=== PATIENT | female | born 1995 | race Caucasian/White ===

== ENCOUNTER 2020-11-21 08:54 | Outpatient (RCR) | payer OTHER, SELFPAY ==
[2020-11-21] MEDS: Please add drug allergy info to patient profile. 1 EACH XX (18:13)
[2020-11-21] MEDS: RHO(D) IMMUNE GLOBULIN 300 MCG/2 ML SYRINGE IM (18:14)
== END 2021-02-19 23:59 | disposition home or self-care (01) ==
LOC: ANHLAB 08:54
PROVIDERS: Visit Provider Student in an Organized Health Care Education/Training Program
DX: Z29.13 Encounter for prophylactic Rho(D) immune globulin (principal); O36.0190 Maternal care for anti-D [Rh] antibodies, unspecified trimester, not applicable or unspecified; Z3A.00 Weeks of gestation of pregnancy not specified
CPT/HCPCS: 36415; 85461; 90384; 96372; J2790

== ENCOUNTER 2021-02-12 13:50 | Outpatient (CLI) | payer OTHER, SELFPAY ==
[2021-02-12 14:47] LABS: Hematocrit 38.5 % (37.0-47.0); Hemoglobin 13.1 g/dL (12.0-15.0); Mean Corpuscular Hemoglobin 30.8 pg (26-34); Mean Corpuscular Volume 90.6 fl (80-100); Mean Platelet Volume 10.9 fl (7.4-10.4); Platelet Count Result 262 k/mm3 (150-375); Red Blood Count 4.25 M/mm3 (4.2-5.4); Red Cell Distribution Width 12.2 % (11.5-14.5); White Blood Count 12.5 K/mm3 (4.5-10.0)
[2021-02-13 06:25] LABS: Rapid Plasma Reagin Non-Reactive (NonReactive)
== END 2021-02-12 13:51 | disposition home or self-care (01) ==
LOC: ANHLAB 13:53
PROVIDERS: Visit Provider Obstetrics & Gynecology
DX: Z01.818 Encounter for other preprocedural examination (principal)
CPT/HCPCS: 36415; 85027; 86592; 86850; 86900; 86901

== ENCOUNTER 2021-02-13 09:53 | Inpatient (IN) | payer OTHER, SELFPAY ==
--- NOTE | 2021-02-02 15:01 | PC.NURSE ---
PATIENT STATES BABY JUST FLIP TO BREECH POSITION THIS WEEK--PATIENT STATES SEES DR VENCES THURSDAY -WILL DISCUSS IF WILL DO EXTERNAL VERSION OR C/S GAVE PATIENT REQUISITION FOR PRE-OP LAB DRAWN. INSTRUCTED PATIENT IF C/S BE IN OB 2 HOURS BEFORE SURGERY AND NOTHING BY MOUTH THE NIGHT BEFORE SURGERY AT MIDNIGHT PATIENT VERBALIZED HER UNDERSTANDING
[2021-02-13] VITALS (50 sets, daily range): BP systolic 91–135; BP diastolic 48–89; PULSE 67–119; RESP 16–20; TEMP 35.8–36.9; O2SAT 94–100; BMI 33.1
--- NOTE | 2021-02-13 09:53 | LDADM ---
This patient, Sheryl Marcum, was admitted to Labor/Delivery/Recovery 119 on 02/13/21 at 09:53. Plans for labor, pain management and were discussed with patient. Patient/family oriented to hospital policies and general routines including ID bracelet, bed and alarms, visiting hours, pain management, procedures, bathroom and other care routines, personal items, smoking policy, room service/diet and guest tray routines, infant security routines, and visiting hours. Patient/Family are encouraged to report perceived risks to care and to ask questions if they do not understand what they are told or what they should do. See OBIX for further documentation.
[2021-02-13] MEDS: LACTATED RINGERS 1,000 ML 125 ML IV CONT (10:29)
--- NOTE | 2021-02-13 10:42 | WPDANESEPP ---
Anes - Eval Pre Procedure Procedure: C Section Operation Date: 02/13/21 12:00 Proposed Procedures p Section - Larry Hammer MD Date/Time: 02/13/21 10:42 Surgeon: Jaquelin Preop Diagnosis: Breech presentation Pre Op Diagnosis: c/s Patient Data Age: 25 Gender: F Height: 1.55 m Weight: 79.5 kg Last Vital Signs Pulse 112 H 02/13/21 10:08 BP 126/78 02/13/21 10:08 Allergies Allergy/AdvReac Type Severity Reaction Status Date / Time No Known Allergies Allergy Verified 02/13/21 10:41 Home Medications Medication Instructions Recorded Confirmed Type No Home Medications 02/13/21 02/13/21 History Patient hx anesthesia problems: none Family hx anesthesia problems: none Results Review: All pre-operative results and documents have been reviewed as part of the pre-operative evaluation. [facility] Past Medical History Medical History Breech presentation Overweight (BMI 25.0-29.9) and not yet delivered Family History Family History Father Hypertension Grandparent Hypertension Social History Social History Smoking status: Never smoker Substance use: never Spiritual care concerns: No Exam Day of Procedure 02/13/21 10:42 Patient weight: overweight Heart: regular rate and rhythm Lungs: clear to auscultation Airway: Mallampati scale class III Neurological: alert and oriented
--- NOTE | 2021-02-13 12:00 | PM.IMHP ---
H&P: HPI History of Present Illness Date/Time: 02/13/21 12:00 25 y/o G1 at 39 3/7 weeks with breech presentation, here for elective primary . GBS pos. Chief Complaint: Here for c section Review of Systems Review of Systems: All systems reviewed & are unremarkable except as noted in HPI and below PMFSH Past Medical History Medical History (Updated 02/13/21 @ 12:04 by Larry Hammer MD) Breech presentation Overweight (BMI 25.0-29.9) and not yet delivered Family History Family History Father Hypertension Grandparent Hypertension Social History Social History Smoking status: Never smoker Substance use: never Spiritual care concerns: No Meds Home Medications and Allergies Home Medications Medication Instructions Recorded Confirmed Type No Home Medications 02/13/21 02/13/21 History Allergies Allergy/AdvReac Type Severity Reaction Status Date / Time No Known Allergies Allergy Verified 02/13/21 10:41 Vital Signs Vital Signs - 24 hr 02/13/21 10:08 Temperature 36.8 C Pulse Rate 112 H Respiratory Rate 20 Blood Pressure 126/78 Exam Const: Orientation/consciousness: patient oriented x3 Other: Well-developed, well-nourished female in no acute distress. Neck: Thyroid: thyroid normal Lymphatic: no lymphadenopathy noted (in neck, axilla or inguinal nodes) Resp: Effort & Inspection: normal respiratory effort Auscultation: clear to auscultation bilaterally Cardio: Rate: regular rate Rhythm: regular rhythm Heart sounds: S1 normal heart sound present and S2 normal heart sound present GI: Other: ABD: Soft, nontender, nondistended, gravid. Breech on Ankit's. No guarding or rebound tenderness. No hepatosplenomegaly. Bedside ultrasound by me confirms breech presentation. : General: Yes no CVA tenderness Other: Cervix closed. Back/Spine/Pelvis: Back: no CVA tenderness Skin: General skin exam: normal color and no rashes or lesions noted Neuro: General: patient oriented x3 Extrem: Other: Extremities: nontender with no edema Psych: Mental Status: mental status grossly normal Affect: normal affect Assessment and Plan Assessment and plan (1) Term : Code(s): Z34.90 - Encounter for supervision of normal , unspecified, unspecified trimester Status: Acute Assessment and Plan: A: IUP at 39 3/7 with persistent breech presentation. GBS pos. P: She declines ECV. Recommended primary LTCS. She understands risks of surgery to include risks of anesthesia, risks of pain, infection, bleeding, blood products, thromboembolic phenomena and damage to adjacent structures such as bowel, bladder, ureters, blood vessels and nerves. She understands all these risks and elects to proceed with surgery. Ancef preoperatively. (2) GBS (group B Streptococcus carrier), +RV culture, currently : Code(s): O99.820 - Streptococcus B carrier state complicating Status: Acute (3) Breech presentation: Code(s): O32.1XX0 - Maternal care for breech presentation, not applicable or unspecified Status: Inactive
--- NOTE | 2021-02-13 12:01 | WPDANESEFPP ---
Anes - Eval Final PreProcedure Day of Procedure 02/13/21 12:01 Patient weight: obese Heart: regular rate and rhythm Lungs: clear to auscultation and normal air movement Airway: Mallampati scale class II Neurological: alert and oriented Last oral intake: >/= 8 hours ASA classification: II Emergent: no Anesthetic plan: proceed Anesthesia type and monitoring: regional spinal Results Review: All pre-operative results and documents have been reviewed as part of the pre-operative evaluation. Informed Consent: The patient's anesthetic plan and its attendant risks and benefits were discussed with the patient/family/POA. Questions were solicited and answers provided to the satisfaction of the patient/family/POA.
[2021-02-13] MEDS: ceFAZolin 2 GM/D5W 50 ML 2 GM/50 ML BAG IVPB (12:07)
--- NOTE | 2021-02-13 13:19 | PM.OBPRVD ---
OB - Delivery Note Procedure Delivery date: 02/13/21 Procedure: Procedures Operation Date: 02/13/21 12:00 <No data on this case meets the specified criteria> Primary low transverse delivery Delivery monitor: external FHT and external uterine Route of delivery: Specimen: Yes (cord blood) Quantitative Blood Loss (ml): 515 Anesthesia type: Spinal Disposition: PACU Complications: None Narrative: The patient was taken to the operating room where she was prepared and draped in the usual sterile fashion in dorsal supine position with a leftward tilt. She received cefazolin preoperatively. Spinal anesthesia was found to be adequate. A Pfannenstiel skin incision was made and carried through to the underlying layer of the fascia. The fascia was incised in the midline and the incision was extended laterally. The fascia was dissected free of the underlying rectus muscles. The rectus muscles were in the midline. The peritoneum was identified, tented up and entered sharply. The peritoneal incision was extended superiorly and inferiorly with good visualization of the bladder. The bladder blade was placed. The vesicouterine peritoneum was identified, tented up and entered sharply. The incision was extended laterally and the bladder flap was developed. The bladder blade was replaced. The uterus was then incised sharply in a transverse fashion along the lower uterine segment. The incision was extended laterally. The 's breech was delivered to the level of the scapulae. The arms were swept across the chest and delivered. The head was gently flexed and easily delivered. The nose and mouth were bulb suctioned. After a delay, the cord was clamped and cut. The was handed off the field. Cord blood was collected. The placenta was removed manually and was passed off the field. The uterus was exteriorized and cleared of all clots and debris. The uterine incision was reapproximated using 0 Monocryl in a running, locked fashion. Excellent hemostasis resulted as did excellent reapproximation of the normal anatomy. The uterus was returned the abdomen. The pelvis was irrigated copiously with warmed normal saline. Rigorous hemostasis was assured. The fascial layer was reapproximated using 0 Vicryl in a running fashion. The skin was closed with a running, subcuticular stitch of 4 0 Vicryl. Dermaflex was applied externally. Sponge, lap, needle and instrument counts were correct. The patient was taken to the recovery room in stable condition. The went to the nursery in stable condition. I was present and scrubbed the entire procedure. [place] Baby Date of : 02/13/21 Time of : 12:41 Weeks of gestation at delivery: 39 Infant gender: Female Weight (pounds): 7 Weight (ounces): 10 presentation: breech Placenta delivery description: Manual Removal and Normal Configuration cord vessel description: 3 Vessels and Delayed Cord Clamping score one minute: 7 score five minutes: 8
--- NOTE | 2021-02-13 13:24 | PM.OBDSVD ---
DS: Admitting Diagnosis Discharge Date 02/15/21 Admitting Diagnosis IUP at 39 3/7 weeks Mario breech presentation GBS colonization DS: Discharge Diagnosis Discharge Diagnosis (1) GBS (group B Streptococcus carrier), +RV culture, currently : Code(s): O99.820 - Streptococcus B carrier state complicating Status: Acute (2) Term : Code(s): Z34.90 - Encounter for supervision of normal , unspecified, unspecified trimester Status: Acute (3) Breech presentation: Code(s): O32.1XX0 - Maternal care for breech presentation, not applicable or unspecified Status: Acute OB - DS: Summary OB Procedures : Ultrasound OB Procedures Intrapartum: OB Procedures: : RHo (D) lg Peripartum Data Procedures: Procedures Operation Date: 02/13/21 12:00 <No data on this case meets the specified criteria> Primary LTCS Discharge Plan Discharge Attending physician on discharge: Larry Hammer Consulting providers: Abdi Brannon Discharging Clinician: Larry Hammer Patient Disposition: Home, Self-Care Activity: may shower, may drive after 2 weeks and pelvic rest Diet: regular Wound Care Instructions: incision open to air Discharge Instructions: Education: Mom and Baby Guide Given to: Mother Follow-Up: Call your delivering provider's office for an appointment to be seen in: 4 Weeks Mom and baby should come to the [facility] for the follow-up appointment. Appointment Date/Time: Tuesday, February 16, 2021 at 11:00 am What to expect at your follow-up visit: Physical Assessment Call [phone] if you are unable to keep your appointment time. BREAST CARE: * Wear a snug supportive bra. * For engorgement discomfort: Bottle Feeding: * May apply ice packs ABDOMINAL INCISION: (if applicable) * Allow incision to air dry * Do NOT use lotions or powders on your incision * When showering, allow soap and water to run over the incision, but do not wash incision EPISIOTOMY/PERINEAL CARE: * Until bleeding stops, use your yaritza bottle after urinating * Change your pad frequently throughout the day * You may take sitz baths several times a day (fill your bathtub with warm water and soak for 20 minutes.) Do NOT bathe in the water * No tub baths until seen by your physician - You may shower ACTIVITY: * Rest as much as possible. * Do not exercise or lift anything heavier than your baby (such as laundry or other children.) * Avoid stairs or driving as much as possible. * Do not put anything into the vagina. No douching, tampons, or sexual activity until seen by physician. NOTIFY PHYSICIAN IF YOU HAVE ANY QUESTIONS OR IF ANY OF THE FOLLOWING SYMPTOMS OCCUR: * If your episiotomy or incision becomes red, swollen, or more painful than what you have experienced in the hospital. * If your vaginal bleeding becomes foul smelling. * If your vaginal bleeding becomes more heavy than a period or if your bleeding changes from pink to bright red. However, you may pass an occasional walnut-sized clot once or twice for the first week . * If you experience a sharp, shooting pain in you calves. * If you discover a hard, reddened area on your breast or if you experience flu-like symptoms. DIET: * Eat regular, well-balanced meals. * Drink plenty of fluids daily. If , drink to thirst. Per Dr. Pat, Call or return if temperature above 100.4? F, increased abdominal pain, increased vaginal bleeding or any new problems. Patient Instructions: Antibiotic Form Follow-up/Referrals: Larry Hammer MD [Physician] - 4 Weeks Discharge Medications: New ibuprofen 600 mg tablet 600 mg PO Q6H PRN (Reason: cramps) Qty: 30 RF: 0 hydrocodone-acetaminophen 5-325 mg tablet 1 - 2 tablet PO Q6H PRN (Reason: pain) Qty: 30 RF: 0 No Action N
[2021-02-13] MEDS: OXYTOCIN 30 UNITS/NS 500 ML 30 UNITS/500 ML BAG 125 UNITS IV CONT (14:05)
--- NOTE | 2021-02-13 15:10 | SUR.PHASEI ---
Report called to Giovana Baer RN. Pt going to room 278 for pp care once recovery completed.
[2021-02-13] MEDS: KETOROLAC 30 MG/ML VIAL (*BKC) IV PUSH (16:16)
--- NOTE | 2021-02-13 18:19 | PC.NURSE ---
Patient transferred to post room #278 via stretcher. Support person present. Oriented to unit, room, information board, rooming in, admission packet and security measures. Patient verbalizes understanding.
[2021-02-13] MEDS: DEXTROSE 5%/0.45% SOD CHL 1,000 ML 125 ML IV CONT (18:34)
[2021-02-14 00:10] VITALS: BP 118/79; PULSE 106; RESP 18; TEMP 36.8; O2SAT 100
[2021-02-14] MEDS: IBUPROFEN 600 MG TABLET PO ×3 (00:22→17:03)
[2021-02-14 05:00] VITALS: BP 120/81; PULSE 95; RESP 18; TEMP 36.3; O2SAT 99
[2021-02-14 05:15] LABS: Basophils Percent Auto 0.2 % (0.2-1.2); Eosinophils Percent Auto 0.2 % (0-4.4); Hematocrit 33.2 % (37.0-47.0); Hemoglobin 11.6 g/dL (12.0-15.0); Immature Granulocyte Absolute 0.08 K/mm3 (0.00-0.031); Immature Granulocyte Percent A 0.5 % (0-0.5); Lymphocytes Absolute Auto 2.74 K/mm3 (0.9-3.2); Lymphocytes Percent Auto 15.4 % (18.3-44.2); Mean Corpuscular HGB Conc 34.9 g/dl (32-36); Mean Corpuscular Hemoglobin 30.9 pg (26-34); Mean Corpuscular Volume 88.5 fl (80-100); Mean Platelet Volume 10.9 fl (7.4-10.4); Monocytes Absolute Auto 1.4 K/mm3 (0.1-0.6); Monocytes Percent Auto 7.9 % (2.6-8.5); Neutrophils Absolute Auto 13.5 K/mm3 (1.3-6.7); Neutrophils Percent Auto 75.8 % (45.5-73.1); Platelet Count Result 227 k/mm3 (150-375); Red Blood Count 3.75 M/mm3 (4.2-5.4); Red Cell Distribution Width 11.9 % (11.5-14.5); White Blood Count 17.8 K/mm3 (4.5-10.0)
[2021-02-14 07:35] VITALS: BP 126/82; PULSE 90; RESP 16; TEMP 37.5; O2SAT 99
[2021-02-14] MEDS: MULTIVIT/MIN/PREN/FOL AC/IRON TABLET 1 TAB PO (08:18)
[2021-02-14] MEDS: DOCUSATE SODIUM 100 MG CAPSULE PO ×2 (08:19→17:03)
[2021-02-14] MEDS: HYDROcodone/acetaminophen (*CRX) 5-325 MG TABLET 1 TAB PO ×3 (08:19→17:03)
--- NOTE | 2021-02-14 09:04 | P.PNOB_ITS ---
OB - PN: Subj Subjective Date/time seen: 02/14/21 09:04 Narrative: Pain OK. Tolerating diet. OB - PN: Obj Data Labs CBC & Chem 7: 02/14/21 04:50 Labs: Laboratory Results - last 24 hr 02/14/21 02/14/21 04:50 04:50 WBC 17.8 H RBC 3.75 L Hgb 11.6 L Hct 33.2 L MCV 88.5 MCH 30.9 MCHC 34.9 RDW 11.9 Plt Count 227 MPV 10.9 H Immature Gran % (Auto) 0.5 Neut % (Auto) 75.8 H Lymph % (Auto) 15.4 L [place] % (Auto) 7.9 Eos % (Auto) 0.2 Baso % (Auto) 0.2 Lymph # (Auto) 2.74 [place] # (Auto) 1.4 H Eos # (Auto) 0.0 Baso # (Auto) 0.0 Abs Immat Gran (auto) 0.08 H Absolute Neuts (auto) 13.5 H Absolute Nucleated RBC 0.0 Nucleated RBC % 0.0 Blood Type O Negative Screen Negative Baby's Blood Type O pos Baby's REGINALD Negative Doses of RhIg Required 1 OB - PN A/P Plan Comments: A: POD#1, doing well. P: Routine care. Exam Narrative: AVSS I/O OK ABD soft, nontender, fundus firm. Incision c/d/i. EXT nontender
[2021-02-14] MEDS: RHO(D) IMMUNE GLOBULIN 300 MCG/2 ML SYRINGE IM (10:37)
[2021-02-14 12:02] VITALS: BP 121/77; PULSE 86; RESP 18; TEMP 37.1; O2SAT 98
--- NOTE | 2021-02-14 12:52 | WPDANLDPN2 ---
Anes-Prog Note L&D Date/Time: 02/14/21 12:52 Comfortable throughout: section Neuraxial method: spinal Epidural/Spinal procedure site: clean & non-tender Neuro status: Neuro function grossly intact. Cardiovascular status: normal Respiratory status: normal Airway patency: baseline Mental status: baseline Post-Op hydration status: normal Vital Signs: Last Vital Signs Temp 37.1 C 02/14/21 12:02 Pulse 86 02/14/21 12:02 Resp 18 02/14/21 12:02 BP 121/77 02/14/21 12:02 Pulse Ox 98 02/14/21 12:02 Pain score (VAS): 0 I/O: Intake & Output 02/13/21 02/14/21 02/14/21 23:59 07:59 15:59 Intake Total 800 Output Total 2700 Balance -1900 Post-procedural complaints: none Patient feedback: Patient satisfied with anesthetic care.
--- NOTE | 2021-02-14 12:53 | WPDANLDNPN2 ---
Anes-Prog Note L&D-Neuraxial Date/Time: 02/14/21 12:53 Neuraxial medications: intrathecal PF morphine Opiod-related complaints: none Patient feedback: Patient satisfied with post-operative pain management.
[2021-02-14 19:10] VITALS: BP 118/72; PULSE 99; RESP 16; TEMP 36.4; O2SAT 99
[2021-02-15] MEDS: IBUPROFEN 600 MG TABLET PO ×2 (00:49→07:54)
[2021-02-15] MEDS: HYDROcodone/acetaminophen (*CRX) 10-325 MG TABLET 1 TAB PO ×2 (00:52→07:55)
[2021-02-15] MEDS: DOCUSATE SODIUM 100 MG CAPSULE PO (07:54)
[2021-02-15 07:55] VITALS: BP 124/79; PULSE 84; RESP 16; TEMP 36.4; O2SAT 100
[2021-02-16 10:46] VITALS: BP 130/88; PULSE 99; RESP 20; TEMP 37; O2SAT 99
== END 2021-02-15 10:44 | disposition home or self-care (01) | DRG 788 ==
LOC: ANHLDR 13:26 → ANHOB2 02-14 11:12 → ANHLDR 02-18 10:25 → ANHOB2 02-18 10:25
PROVIDERS: Admitting Provider Obstetrics & Gynecology; Visit Provider Student in an Organized Health Care Education/Training Program
PROC: 10D00Z1 Extraction of Products of Conception, Low, Open Approach (ICD-10-PCS; CPT 59514; principal; 2021-02-13 12:00)
DX: O34.219 Maternal care for unspecified type scar from previous cesarean delivery (principal); O32.1XX0 Maternal care for breech presentation, not applicable or unspecified; O99.824 Streptococcus B carrier state complicating childbirth; O76 Abnormality in fetal heart rate and rhythm complicating labor and delivery; Z3A.39 39 weeks gestation of pregnancy; Z37.0 Single live birth
CPT/HCPCS: 36415; 85025; 85027; 85461; 86592; 86850; 86900; 86901; 90384; A9270; J0131; J0690; J1200; J1885; J2274; J2590; J2790; J7120

== ENCOUNTER → 2021-04-05 10:48 | Outpatient (CLI) | payer OTHER, SELFPAY ==
--- NOTE | ~2021-04-05 | CT_ITS ---
EXAMINATION: CT abdomen pelvis wo con DATE: 04/05/2021 11:20 INDICATION: Left ventral hernia TECHNIQUE: Computed tomography (CT) of the abdomen and pelvis was performed without intravenous contr ast. Automated exposure control and iterative reconstruction technique were employed. The dose-length product was 516.21 mGy-cm. COMPARISON: None FINDINGS: Lung bases are clear. Visualized inferior heart is normal. No pericardial or pleural effusion. Liver, gallbladder, spleen, pancreas, bilateral adrenal glands and kidneys are normal. Bowels including the appendix are normal. Bladder an anteverted uterus are normal. Postoperative change of relatively rec ent section. There is asymmetric thickening along the left side of the surgical scar suggest ing an approximately 3.1 cm seroma/hematoma along the scar. Trace amount of likely physiologic free f luid in the cul-de-sac. No pathologically enlarged abdominal or pelvic lymphadenopathy. No evident ve ntral hernia. Small bone island in the left femoral head. IMPRESSION: 1. Asymmetric mild thickening along the left side of the anterior pelvic section scar sugges ting possible 3 x 1 cm indeterminate/seroma. Reviewed, dictated and finalized at location B. [employer] IMPRESSION: 1. Asymmetric mild thickening along the left side of the anterior pelvic gus an section scar suggesting possible 3 x 1 cm indeterminate/seroma.
== END ==
PROVIDERS: Visit Provider Obstetrics & Gynecology
DX: K43.9 Ventral hernia without obstruction or gangrene (principal)
CPT/HCPCS: 74176